=== PATIENT | male | born 1990 | race Caucasian/White ===

== ENCOUNTER 2017-10-27 22:54 | Emergency (ER) | payer OTHER ==
[~2017-10-27] VITALS: Ht 188 cm; Wt 80.0 kg
[2017-10-27 22:56] VITALS: BP 142/64; PULSE 75; RESP 16; TEMP 98.4; O2SAT 99
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
[2017-10-27] MEDS ORDERED: ACETAMINOPHEN/HYDROcodone 325 MG/5 MG TAB PO ONE (23:45)
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
[2017-10-28] MEDS ORDERED: IBUP1TAB7 PO (00:44)
[2017-10-28] MEDS ORDERED: IBUPROFEN 800 MG TAB PO ONE (00:45)
== END 2017-10-28 01:15 | disposition home or self-care (01) ==
LOC: NEPD 22:54
DX: S93.401A Sprain of unspecified ligament of right ankle, initial encounter (principal); X50.1XXA Overexertion from prolonged static or awkward postures, initial encounter; Y92.810 Car as the place of occurrence of the external cause
CPT/HCPCS: 29515; 73610; 99283; E0113; L1906